=== PATIENT | female | born 1990 | race Two or more races ===

== ENCOUNTER 2022-02-07 03:15 | Emergency (ER) | payer OTHER ==
[~2022-02-07] VITALS: Ht 170.2 cm; Wt 90.7 kg
== END 2022-02-07 09:37 | disposition home or self-care (01) ==
LOC: ER 03:15
DX: G43.909 Migraine, unspecified, not intractable, without status migrainosus (principal)

== ENCOUNTER 2023-03-07 08:14 | Emergency (ER) | payer OTHER ==
[~2023-03-07] VITALS: Ht 170.2 cm; Wt 81.6 kg
[2023-03-07 13:15] LABS: HEMATOCRIT 37.4 % (36.0-45.00); HEMOGLOBIN 12.1 g/dL (12.0-15.00); MEAN CELL VOLUME 70.1 fL (80.00-100.00); MEAN CORPUSCULAR HEMOGLOBIN 22.6 pg (27.00-32.0); MEAN CORPUSCULAR HGB CONC 32.2 g/dl (32.0-36.0); PLATELET COUNT 318 K/uL (150-450); RED BLOOD COUNT 5.34 M/uL (4.00-6.00); RED CELL DISTRIBUTION WIDTH 13.6 % (11.5-14.5)
== END 2023-03-07 14:35 | disposition home or self-care (01) ==
LOC: ER 08:14
PROVIDERS: General Practice
DX: G43.909 Migraine, unspecified, not intractable, without status migrainosus (principal); I10 Essential (primary) hypertension